=== PATIENT | female | born 1980 | race Caucasian/White ===

== ENCOUNTER → 2018-05-14 | Day surgery (SDC) | payer OTHER ==
[~2018-05-14] VITALS: Ht 162.6 cm; Wt 72.6 kg
--- NOTE | 2018-05-14 12:00 | Operative Report ---
Operative/Inv Procedure Report Surgery Date: 05/14/18 Name of Procedure: Explore penetrating wound left long finger, repair digital nerve, use of operating microscope Pre-Operative Diagnosis: Penetrating injury left long finger with paresthesias radial aspect Post-Operative Diagnosis: Same Estimated Blood Loss: scant Surgeon/[employer]erg[employer] Autobody Repairer: Aris Altamirano MD Anesthesia: laryngeal mask airway Operative/Procedure Note Note: Patient was counseled in regards to her request for surgical intervention to treat a penetrating injury to the left long finger with resulting paresthesias of the radial tip of the finger. We discussed the procedure and the expectations and alternatives including no surgery the risks and the expected outcomes. No guarantees were given in regards to return of sensation. We talked about the risk of additional injury to the artery but there will be a definite visible permanent scar due to a skin incision is required to explore the wound. When the patient appeared to have an understanding she signed informed consent after some additional discussion. The patient and I also had a phone conversation following her office visit. She was brought to the operating room and placed supine on the table. A digital block was placed after intravenous sedation which proceeded to an LMA due to patient movement. A tourniquet was placed proximally on the base of the finger. 3 sided skin flap was developed to explore the wound. Digital nerve was completely divided and the artery was uninjured. The operating microscope was used to dissect out the nerve showing the divided ends were freshened sharply. 9 oh nylons were then used in the perineurium circumferentially to provide tension-free repair. The wound was irrigated and closed and splinted
== END ==
LOC: STS 01:59
DX: S64.493A Injury of digital nerve of left middle finger, initial encounter (principal); X58.XXXA Exposure to other specified factors, initial encounter; R20.2 Paresthesia of skin
CPT/HCPCS: J0690; J2250